=== PATIENT | male | born 1980 | race Caucasian/White ===

== ENCOUNTER 2024-07-18 07:10 | Emergency (ER) | payer MEDICAID ==
[~2024-07-18] VITALS: Ht 170.2 cm; Wt 69.0 kg
[2024-07-18 07:13] VITALS: O2SAT 98
[2024-07-18 07:25] VITALS: BP 144/95; PULSE 83; RESP 16; TEMP 36.8; O2SAT 100
[2024-07-18] MEDS: BUPRENORPHINE 8MG SL TABLET SL STA (08:50)
[2024-07-18] MEDS: CHLORDIAZEPOXIDE 25MG CAPSULE PO STA (08:50)
[2024-07-18 09:09] LABS: *AMPHETAMINES SCREEN URINE PRESUMPTIVE POSITIVE (NEGATIVE); *BARBITURATES SCREEN URINE PRESUMPTIVE POSITIVE (NEGATIVE); *BENZODIAZEPINES SCREEN URINE NEGATIVE (NEGATIVE); *COCAINE SCREEN URINE NEGATIVE (NEGATIVE); CANNABINOID URINE SCREEN PRESUMPTIVE POSITIVE (NEGATIVE); ECSTASY MDMA SCREEN URINE NEGATIVE (NEGATIVE); METHADONE URINE SCREEN NEGATIVE (NEGATIVE); OPIATES URINE SCREEN NEGATIVE (NEGATIVE); PHENCYCLIDINE URINE SCREEN NEGATIVE (NEGATIVE)
== END 2024-07-18 09:10 | disposition home or self-care (01) ==
LOC: ER 07:10
DX: F10.939 Alcohol use, unspecified with withdrawal, unspecified (principal); F31.9 Bipolar disorder, unspecified; F41.9 Anxiety disorder, unspecified; Z88.0 Allergy status to penicillin; Z79.899 Other long term (current) drug therapy; Y90.9 Presence of alcohol in blood, level not specified
CPT/HCPCS: 80305; 99283; Z7610